=== PATIENT | female | born 1965 | race Caucasian/White ===

== ENCOUNTER 2023-06-24 22:18 | Observation (INO) | payer OTHER, SELFPAY ==
[2023-06-24 12:33] VITALS: BP 143/101
[2023-06-24 12:51] LABS: % Basophils 0.9 % (0-2); % Eosinophils 0.9 % (0-6); % Immature Granulocytes 0.2 % (0-0.5); % Monocytes 5.4 % (1.7-9.3); % Neutrophils 51.6 % (42.2-75.2); Absolute Lymphocytes 1.8 10^3/uL (1.2-3.4); Absolute Monocytes 0.2 10^3/uL (0.1-0.6); Absolute Neutrophils 2.2 10^3/uL (1.4-6.5); Hematocrit 39.7 % (37.0-47.0); Hemoglobin 13.4 g/dL (12.0-16.0); Mean Corp Hgb Conc. 33.8 g/dL (33.0-37.0); Mean Corpuscular Hgb 30.9 pg (27.0-31.0); Mean Corpuscular Volume 91.7 fL (81.0-99.0); Mean Platelet Volume 8.8 fL (7.4-10.4); Nucleated Red Blood Cells % 0 %; Platelet Count 251 10^3/uL (130-400); Red Blood Cell Count 4.33 10^6/uL (4.20-5.40); Red Cell Dist. Width 12.5 % (11.5-14.5); White Blood Cell Count 4.3 10^3/uL (4.8-10.8)
[2023-06-24 13:19] LABS: ALT (SGPT) 27 U/L (0-35); AST (SGOT) 36 U/L (14-36); Albumin 4.4 g/dl (3.5-5.0); Alkaline Phosphatase 62 U/L (38-126); Blood Urea Nitrogen 11 mg/dl (7-17); Calcium 9.5 mg/dl (8.4-10.2); Carbon Dioxide 27 mmol/L (22-30); Chloride 106 mmol/L (98-107); Glucose 135 mg/dl (70-99); Potassium 4.2 mmol/L (3.5-5.1); Sodium 136 mmol/L (135-145); Total Bilirubin 0.5 mg/dl (0.2-1.3); eGFR > 60.00
[2023-06-24 16:37] VITALS: BP 124/90
[2023-06-24 17:03] LABS: Erythrocyte Sed Rate 9 mm/hour (0-20)
[2023-06-24] MEDS: NSS 1000 IV (17:10)
--- NOTE | 2023-06-24 17:27 | ED.GENMED ---
History of Present Illness
General
Chief Complaint: Dizziness
Source: patient
Exam Limitations: none
Time Seen by Provider: 06/24/23 15:57
Nursing documentation reviewed up to this point in time: agreed with
Travel History
Have you had any contact with someone who has COVID-19?: No
Do you have any symptoms of coronavirus? Fever > 100 degrees, chills, cough, shortness of breath, sore throat, loss of taste or smell, muscle aches, or headache?: No
History of Present Illness
History of Present Illness:
The patient is a 58-year-old female who reports that she has been dizzy intermittently for the last 2 weeks. In addition to the dizziness, she has had intermittent numbness of her left cheek. The numbness in her cheek has gone away but over the
last 1 to 2 days, she has developed sharp pain along her left face and recently it has radiated down towards her left neck. Patient describes it as tearing left-sided neck pain. She denies chest pain or shortness of breath. Patient reports that
she has a history of palpitations and tachycardia. She denies fever. She denies vision changes.
Past History
Past History
ED Past Medical History: Other (Palpitations)
ED Past Surgical History: Other
Social History
Tobacco: Non-smoker
Alcohol: Other
Drug: None
Personal:
Living: with family
Employment: Other
Family History
Family History: Other
Review of Systems
Review of Systems
Allergies reviewed?: Yes
All Other Systems: ROS reviewed and negative except as documented in HPI and ROS
Constitutional: Reports no symptoms
EENT: Reports no symptoms
Respiratory: Reports no symptoms
Cardiac: Reports no symptoms
ABD/GI: Reports no symptoms
: Reports no symptoms
Musculoskeletal: Reports neck pain
Skin: Reports no symptoms
Neurological: Reports dizzy and other
Endocrine: Reports no symptoms
Hematologic/Lymphatic: Reports no symptoms
Psychiatric: Reports no symptoms
Phy Exam
Physical Exam
Physical Exam:
Physical Exam
General: no apparent distress, not acutely ill. Well but slightly anxious appearing
Neck: supple. no meningeal signs. normal psoterior pharynx
Heart: Tachycardic. No murmur. Regular rhythm
Lungs: no acute respiratory distress. clear bilaterally
Abdomen: normal bowel sounds. not tender. no CVAT
Neuro: alert and oriented. no focal neurological deficits. Normal finger-nose. Extraocular muscles intact. Cranial nerves equal and symmetric bilaterally. Normal gait.
Skin: no rash
Psychiatric: well kept. interactive and cooperative
Extremities: no edema. no calf tenderness. negative homans. good distal pulses
Course
Orders/Labs/Results
Orders:
Orders
06/24/23 12:33
Electrocardiogram (*1) Urgent
Reason for Study: Tachycardia
06/24/23 12:34
EKG- Treatment ONCE
06/24/23 12:[address] [CT Head W/o Iv Contrast] Urgent
Comment:
Reason For Exam: left head pain -- known right sided brain tumor
06/24/23 12:44
Complete Blood Count/With Diff Urgent
Comprehensive Metabolic Panel Urgent
Erythrocyte Sed Rate Urgent
Comment: ADD ON
TSH Urgent
Comment: ADD ON\\
06/24/23 16:43
0.9% Sodium Chloride 1000 ml [Nss] 1,000 ml IV BOLUS
06/24/23 16:51
0.9% Sodium Chloride 1000 ml [Nss] 1,000 ml IV BOLUS
06/24/23 16:52
Add On- LAB Urgent
Tests Added?: TSH, ESR
06/24/23 20:48
Admit/Transfer Patient As Directed
Co-Sign Provider:
Level of Care: Observation services
Assign to:: Telemetry
Physician / Group: Dr. Cam Mccartney/Hospitalists
Diagnosis: Vertigo, TIA vs. Seizure
Reason for Telemetry: CVA/TIA
Date to Stop Telemetry: 06/27/23
Time to Stop Telemetry: 11:00
06/24/23 20:50
Code Status As Directed
Resuscitation Status: Full Code
06/24/23 21:02
Echo 2D MMode Color/Doppler Routine
Reason for Study: Dizziness, significantly fluctuating BPs at home
Orthostatic Vital Signs As Directed
Orthostatic VS Frequency: BID
06/27/23 11:00
DC Protocol for Telemetry ONCE
Abnormal Lab Results
06/24/23
12:44
WBC 4.3 L 10^3/uL
(4.8-10.8)
Glucose 135 H mg/dl
(70-99)
06/24/23 12:44
06/24/23 12:44
Vital Signs
Initial and Last Documented VS:
Initial Vital Signs
Temp Pulse BP Pulse Ox
98.2 F 120 143/101 97
06/24/23 12:33 06/24/23 12:33 06/24/23 12:33 06/24/23 12:33
Last Documented Vital Signs
Temp Pulse Resp BP Pulse Ox
98.2 F 71 16 132/87 100
06/24/23 12:33 06/24/23 19:23 06/24/23 19:23 06/24/23 19:23 06/24/23 19:23
MDM/Problems Addressed
Differential Diagnosis Includes:
CVA, carotid dissection, vestibular artery dissection
MDM/Problems Addressed:
Patient presents with subacute dizziness and intermittent facial pain and numbness
*Radiology
Radiology exam reviewed: radiology read reviewed
*Pulse Oximetry
Patient hypoxic: no
*EKG
Interpreted by ED Provider?: Yes
Interpretation: abnormal
Comparison EKG: no comparison EKG present
Rate: tachycardiac
Rhythm: sinus
[place]: normal axis
Interval: normal interval
QRS Pattern: normal QRS
Ischemia: no ischemia
*Roofing Applicator Interpretation
Rate: tachycardiac
Interpretation: abnormal
Rhythm: sinus
*Critical Care Note
Total Time (30-74mins, 75-104mins- exclusive of procedures): Not Applicable
Data Reviewed
Source: patient
Patient Management
Discussion with other providers: Other (Neurologist on-call, who recommended patient be admitted for further workup)
Escalation/DeEscalation of care consider admission/obs:
I am concerned that patient could potentially have an arterial dissection of the head or neck given her symptoms. However, patient reports she is severely allergic to IV contrast. She reports that even with Benadryl and steroids, she is unable to
get IV contrast. Therefore, I did not order CTA at this time.
ED Attending Note
-
Portions of this chart may have been created with voice recognition software.� Occasional wrong word or��sound alike� substitutions may have occurred due to the inherent limitations of voice recognition software.
Discharge Plan
Departure
Patient Disposition: Admit
Date of Disposition: 06/24/23
Time of Disposition: 18:09
Admit to: Telemetry
Presentation/result/management discussed w/ accepting MD/DO: Hospitalist
Patient with high blood pressure during this ER visit?: Yes
Condition: Fair
Covid-19: Not Applicable
Discharge Problem:
Dizziness, Left facial pain
Prescriptions:
No Action
omeprazole magnesium [Prilosec OTC] 20 mg Tablet,Delayed Release (Dr/Ec)
20 mg PO BID
cholecalciferol (vitamin D3) [Vitamin D3] 50 mcg (2,000 unit) Tablet
50 mcg PO DAILY
magnesium oxide 400 mg magnesium Tablet
400 mg PO DAILY
Vitamin B-12 [place]
1 spray PO DAILY
Referrals:
Guillermina Jaffe DO [Family Provider] -
Interventions
Interventions:
*Risk Screen - Suicide Last Done: 06/24/23 12:39
*General Assessment Last Done: 06/24/23 12:39
*Neglect/Abuse Screening Last Done: 06/24/23 12:39
ED- Fall Risk Assessment Last Done: 06/24/23 17:59
*ED COVID-19 Vaccine History Last Done: 06/24/23 12:39
ED- Neurological Assessment Last Done: 06/24/23 17:59
--- NOTE | 2023-06-24 17:58 | CON.NEURO ---
Consultation
Order
CC: dizziness
HPI: This is a 58-year-old right-handed woman who presents to [facility] on 06/24/[facility]21 for further evaluation of dizziness and sensory deficits
According to the patient she developed transient left face and lower leg numbness with associated vertigo, imbalance and nausea. She states that her sensory deficits lasted for several hours and resolved however she continued to have intermittent
sensation of disequilibrium with associated left tinnitus that worsened in the morning leading her to seek medical attention. Ms. Somers admits to have left posterior neck discomfort and denied sensory symptoms in the left arm. No reports of
dysarthria, motor weakness, change in vision, dysarthria or diplopia.
ER VS: 123/101, 120�109, afebrile
Labs: Glucose�135 WBCs�4.3, normal sodium, creatinine
EKG-sinus tachycardia
CT head -bifrontal atrophy, calcified right temporal meningioma
PDMP: No prescribed medication
PSH: Right ovarian cyst removal
SH: , former middle school math teacher, non-smoker
FH: Father�stroke
All: Iodine, gadolinium, Flagyl, sulfas, levofloxacin, azithromycin
ROS:Constitutional: Negative. Negative for chills, fever and unexpected weight change.
HENT: Positive for intermittent vertigo and left tinnitus
Eyes: Negative. Negative for photophobia, pain and visual disturbance.
Respiratory: Negative for cough, choking and shortness of breath.
Cardiovascular: Negative for chest pain, palpitations and leg swelling.
Gastrointestinal: Positive for abdominal discomfort
Endocrine: Negative. Negative for cold intolerance.
Genitourinary: Negative for dysuria, flank pain and urgency.
Musculoskeletal: Positive for neck pain
Skin: Negative for rash.
Allergic/Immunologic: Negative. Negative for immunocompromised state.
Neurological: Positive for transient left sensory deficits
Psychiatric/Behavioral: Positive for anxiety
General: Well developed. In no acute distress.
Cardio: Regular rate and rhythm without murmur. Extremities are without cyanosis or edema.
Neuro:
Mental Status: Alert, oriented to person, place, and date. Normal attention and recall. Good fund of knowledge. Follows complex requests across the midline. Comprehension, naming, and repetition intact. Immediate and delayed recall 3/3. Anxious
Cranial Nerves: . Pupils are equally round and reactive to light. EOMs full. Visual dickson full to confrontation. No ptosis. No nystagmus. V1-V3 intact to light touch and pinprick bilaterally, symmetric. Face symmetric. Normal hearing AU.
The palate elevated well. SCMs and traps 5/5. Tongue midline. No dysarthria.
Motor: Normal bulk and tone. No pronator or arm drift. Strength 5/5 throughout. No clonus.
Reflexes: 3+ throughout the upper extremities and 3+ knees. 2/2 in AJs. Plantar responses flexor bilaterally.
Sensory: Normal pinprick, vibration and JPS.
Coordination: No dysmetria or tremor.
Gait: deferred
Assessment and Plan:
I. Vertigo
II. TIA versus seizure
III. Right temporal meningioma
IV. MICHELLE
V. Bifrontal atrophy
-Continue Telemetry monitoring.
-Please obtain orthostatic vital signs
-Seizure precautions
-MRI brain without gadolinium
-MRA neck (fat suppression protocol)
-Routine EEG
-Meclizine 25 mg every 8 hours as needed
-PT
-DVT prophylaxis
I personally reviewed all radiology and labs along with past medical records pertinent to current medical problems.
Thank you for allowing us to participate in the care of this patient. We will continue to follow. Please do not hesitate to contact us with any questions or concerns.
Subjective/Objective
Subjective Data
Date of Service: June 24, 2023
Objective Data
Vital Signs
Temp Pulse Resp BP Pulse Ox
36.8 C 109 20 124/90 100
06/24/23 12:33 06/24/23 16:37 06/24/23 16:37 06/24/23 16:37 06/24/23 16:37
Lab Results
06/24/23 12:44
06/24/23 12:44
Sodium 136 mmol/L (135-145) 06/24/23 12:44
Potassium 4.2 mmol/L (3.5-5.1) 06/24/23 12:44
BUN 11 mg/dl (7-17) 06/24/23 12:44
Glucose 135 mg/dl (70-99) H 06/24/23 12:44
Calcium 9.5 mg/dl (8.4-10.2) 06/24/23 12:44
Patient Allergies
azithromycin [From Zithromax] Allergy (Verified 06/24/23 12:42)
Hives
Iodinated Contrast Media Allergy (Verified 06/24/23 12:42)
Anaphylaxis
levofloxacin [From Levaquin] Allergy (Verified 06/24/23 12:42)
Hives
metronidazole [From Flagyl] Allergy (Verified 06/24/23 12:42)
Hives
Sulfa (Sulfonamide Antibiotics) Allergy (Verified 06/24/23 12:42)
Swelling
Vital Signs and Labs
-
Vital Signs and Labs:
Vital Signs
Temp Pulse Resp BP Pulse Ox
36.8 C 109 20 124/90 100
06/24/23 12:33 06/24/23 16:37 06/24/23 16:37 06/24/23 16:37 06/24/23 16:37
Lab Results
06/24/23 12:44
06/24/23 12:44
Sodium 136 mmol/L (135-145) 06/24/23 12:44
Potassium 4.2 mmol/L (3.5-5.1) 06/24/23 12:44
BUN 11 mg/dl (7-17) 06/24/23 12:44
Glucose 135 mg/dl (70-99) H 06/24/23 12:44
Calcium 9.5 mg/dl (8.4-10.2) 06/24/23 12:44
[2023-06-24 18:29] LABS: TSH 1.03 uIU/ml (0.47-4.68)
[2023-06-24 19:23] VITALS: BP 132/87
--- NOTE | 2023-06-24 20:53 | HPS.HSE ---
Family Physician
-
Family Physician: Guillermina Jaffe DO
Chief Complaint
-
Dizziness and numbness recently
History of Present Illness
58-year-old with no past medical history who presented to [facility] due to dizziness. Patient said that it all started about 2 weeks ago, when started getting both room-spinning dizziness and lightheadedness. She also experienced left-side
of her face and left leg numbness. She reports that she is still feeling off balance at times with random significant fluctuations in her blood pressure. She also reported left-sided headache for the past 5 days.
Medical History
Past Medical History
Past Medical History: Reports None
Past Surgical History: Reports Gynocological (right ovarian cyst removal)
Social History
Tobacco: Non-smoker
Family History
Family History: Other (Stroke)
Allergies / Home Medications
Allergies reflects when Allergies were last updated in [facility].
Home Medications with original date entered in [facility]
Allergy/Medication List:
Allergies
Allergy/AdvReac Type Severity Reaction Status Date / Time
azithromycin [From Zithromax] Allergy Hives Verified 06/24/23 12:42
Iodinated Contrast Media Allergy Anaphylaxis Verified 06/24/23 12:42
levofloxacin [From Levaquin] Allergy Hives Verified 06/24/23 12:42
metronidazole [From Flagyl] Allergy Hives Verified 06/24/23 12:42
Sulfa (Sulfonamide Allergy Swelling Verified 06/24/23 12:42
Antibiotics)
Home Medications
Vitamin B-12 [place] 1 spray PO DAILY 06/24/23
cholecalciferol (vitamin D3) 50 mcg (2,000 unit) tablet (Vitamin D3) 50 mcg PO DAILY 06/24/23
magnesium oxide 400 mg PO DAILY 06/24/23
omeprazole magnesium 20 mg tablet,delayed release (Prilosec OTC) 20 mg PO BID 06/24/23
Review of Systems
-
A 12 point ROS was completed and negative except as noted: Yes
Physical Exam
Vital Signs
Vital Signs
Temp Pulse Resp BP Pulse Ox
98.2 F 71 16 132/87 100
06/24/23 12:33 06/24/23 19:23 06/24/23 19:23 06/24/23 19:23 06/24/23 19:23
Physical Exam
General: No Apparent Distress
HEENT: NormoCephalic and Moist mucous membranes
Respiratory: Clear
Cardiac: S1/S2 and Regular Rhythm
GI: Soft, Non Tender and Normal Bowel Sounds
Musculoskeletal: No Cyanosis and No Edema
Skin: Warm and Dry
Neuro: Awake, Alert, AO x 3 and Nonfocal/grossly intact
Psych: Calm and Intact Judgment/Insight
Laboratory Results
-
06/24/23 12:44
06/24/23 12:44
Laboratory Results
Total Bilirubin 0.5 mg/dl (0.2-1.3) 06/24/23 12:44
AST 36 U/L (14-36) 06/24/23 12:44
ALT 27 U/L (0-35) 06/24/23 12:44
Alkaline Phosphatase 62 U/L (38-126) 06/24/23 12:44
Impression/Plan
-
Assessment/Plan
Dizziness (both room-spinning and lightheadedness), Vertigo
Recent left-side of her face and left leg numbness - TIA vs. seizure
Left-sided headache for the past 5 days.
Reported Random significant fluctuations in her blood pressure
Right temporal meningioma
-Telemetry monitoring
-Orthostatic vital signs
-Echocardiogram
-Neurology consulted, recommendations appreciated
-Seizure precautions
-MRI brain without gadolinium
-MRA neck (fat suppression protocol)
-Routine EEG
-Meclizine 25 mg every 8 hours as needed
--- NOTE | 2023-06-24 21:44 | W.PN.UPDATE ---
Update Note
Progress Note Update
RN notified WILLOW MACHINE TENDER patient is anxious and has questions in regards to why she needs to be admitted. chart reviewed, patient seen. Addressed the importance of tests and consultations needing to be done. Patient concerns of getting Covid being here at the
hospital, addressed Covid/flu protocol. addressed the risks vs benefits. Patient refuses any hx of anxiety or being on any medications at home. Patient agrees to stay at present. Agrees this WILLOW MACHINE TENDER answered her concerns and questions.
[2023-06-24 22:50] VITALS: BMI 21.8
--- NOTE | 2023-06-24 22:52 | PTCARENOTE ---
Pt. arrives onto 4E from ED via wheelchair. Asked RN as to why she needed to be admitted, and wanted to leave AMA. RN TT DOCUMENT REVIEW SPECIALIST, DOCUMENT REVIEW SPECIALIST arrived onto floor and explained to pt. the reason for admission, as well as answered all questions. DOCUMENT REVIEW SPECIALIST advised pt.
to stay, follow-through with the plan of stay as that would be the safest choice, but pt. was still adamant on leaving AMA. AMA paperwork signed, pt. left with all personal belongings. Pt. was calm, pleasant, and of sound mind.
--- NOTE | 2023-06-28 10:03 | W.DCSUMMARY ---
Discharge Summary
Discharge Data
Date of Admission: 06/24/23
Date of Discharge: 06/24/23
Total time spent discharging patient (in min): 31
-
Pending Results: No
Hospital Course
58-year-old female with no past medical history who presented to [facility] due to dizziness. Patient said that it all started about 2 weeks ago, when started with getting both room-spinning dizziness and lightheadedness. She also
experienced left-side of her face and left leg numbness. She reports that she is still feeling off balance at times with random significant fluctuations in her blood pressure. She also reported left-sided headache for the previous 5 days. Neurology
was consulted and patient was admitted. It was explained by the hospitalist, to the patient, that she will need a work-up including echocardiogram, MRI brain imaging, etc. Patient initially was okay with staying but later left against medical advice.
Discharge Plan
-
Patient Disposition: Against Medical Advice
Prescriptions:
No Action
omeprazole magnesium [Prilosec OTC] 20 mg Tablet,Delayed Release (Dr/Ec)
20 mg PO BID
cholecalciferol (vitamin D3) [Vitamin D3] 50 mcg (2,000 unit) Tablet
50 mcg PO DAILY
magnesium oxide 400 mg magnesium Tablet
400 mg PO DAILY
Vitamin B-12 [place]
1 spray PO DAILY
Discharge Date and Time
Discharge Date/Time: 06/24/23 23:30
== END 2023-06-24 23:30 | disposition left against medical advice (07) ==
LOC: 4 EAST ACU 22:18
PROVIDERS: Emergency Medicine; ADMITTING PHYSICIAN Hospitalist; EMERGENCY PHYSICIAN Emergency Medicine; FAMILY PHYSICIAN Internal Medicine; OTHER PHYSICIAN Psychiatry & Neurology Neurology
DX: R42 Dizziness and giddiness (principal); R20.0 Anesthesia of skin; M54.2 Cervicalgia; R00.0 Tachycardia, unspecified; R51.9 Headache, unspecified; F41.1 Generalized anxiety disorder; D49.6 Neoplasm of unspecified behavior of brain; R26.89 Other abnormalities of gait and mobility; R11.0 Nausea; Z91.041 Radiographic dye allergy status; Z88.8 Allergy status to other drugs, medicaments and biological substances; Z88.1 Allergy status to other antibiotic agents; Z88.2 Allergy status to sulfonamides
CPT/HCPCS: 70450; 80053; 84443; 85025; 85652; 93005; 96360; 99285; G0378